=== PATIENT | female | born 1965 | race Hispanic/Latino ===

== ENCOUNTER 2017-05-14 06:44 | Day surgery (SDC) | payer BC ==
[2017-05-13 15:33] LABS: BASOPHILS % (AUTO) 0.6 % (0.0-5.0); EOSINOPHILS % (AUTO) 1.1 % (0.0-8.0); HEMATOCRIT 40.1 % (36-48); LYMPHOCYTES % (AUTO) 38.9 % (21.0-51.0); MEAN CORPUSCULAR HEMOGLOBIN 31.6 pg (27.0-33.0); MEAN CORPUSCULAR HGB CONC 34.3 g/dL (32.0-36.0); NEUTROPHILS % (AUTO) 53.4 % (40.0-77.0); PLATELET COUNT (AUTO) 286 K/uL (130-400); RED BLOOD CELL COUNT(AUTO) 4.36 MIL/uL (4.00-5.50); RED CELL DISTRIBUTION WIDTH 12.6 % (11.0-15.5); WHITE BLOOD COUNT (AUTO) 7.1 K/uL (4.8-10.8)
[2017-05-13 15:36] VITALS: BP 108/59
[2017-05-14] VITALS (17 sets, daily range): BP systolic 83–139; BP diastolic 36–77
[~2017-05-14] VITALS: Ht 165.1 cm; Wt 63.7 kg
[~2017-05-14 06:44] MED LIST: CALDOLOR 800MG+NS 250ML 250 ML IV SCH; CEFAZOLIN SODIUM 1 GM VIAL IVP SCH; LACTATED RINGERS 1000ML 1,000 ML IV SCH; LOSA50TA37 PO; SERT50TA12 PO; SIMV40TA5 PO
[2017-05-14] MEDS ORDERED: MIDAZOLAM HCL 1 MG/ML 2ML VIAL ONE (10:35)
[2017-05-14] MEDS ORDERED: LIDOCAINE HCL MPF 1% 5ML VIAL ONE (10:35)
[2017-05-14] MEDS ORDERED: FENTANYL CITRATE PF 50 MCG/1 ML 2ML VIAL ONE (10:36)
[2017-05-14] MEDS ORDERED: PROPOFOL 10 MG/ML 20ML VIAL IV ONE (10:36)
[2017-05-14] MEDS ORDERED: MEPERIDINE-PF 25 MG/ML SYG ONE ×2 (12:06→12:15)
[2017-05-14] MEDS ORDERED: TYL3 PO (13:31)
[2017-05-14] MEDS ORDERED: IBUP-1673 PO (13:32)
== END 2017-05-14 13:53 | disposition home or self-care (01) ==
LOC: DAH 06:44
DX: N95.0 Postmenopausal bleeding (principal)
CPT/HCPCS: 36415; 58120; 84703; 85025; 85384; 88305; A4351; A4600; A4930; J1741; J2175 ×2; J2250; J2704; J3010; J3490; J7120

== ENCOUNTER → 2017-12-15 | Outpatient (CLI) | payer BC ==
[~2017-12-15] MED LIST changes: -CALDOLOR 800MG+NS 250ML 250 ML IV SCH; -CEFAZOLIN SODIUM 1 GM VIAL IVP SCH; +IBUP-1673 PO; -LACTATED RINGERS 1000ML 1,000 ML IV SCH; +LOSA50TA25 PO; -LOSA50TA37 PO; +TYL3 PO
== END | disposition home or self-care (01) ==
LOC: OIH 13:04
PROVIDERS: ATTEND Family Medicine
DX: M48.02 Spinal stenosis, cervical region (principal)
CPT/HCPCS: 72050; 73030